=== PATIENT | male | born 1985 | race African-American/Black ===

== ENCOUNTER 2021-08-28 21:42 | Emergency (ER) | payer OTHER ==
--- NOTE | 2021-08-28 23:49 | XRAY Report ---
PROCEDURE: Chest 1 View X-Ray INDICATIONS: chest pain TECHNIQUE: One view of the chest was acquired. COMPARISON: None FINDINGS: Surgical changes and devices: None. Lungs and pleura: No pleural effusions or pneumothorax. Lungs are clear. Mediastinum: Mediastinal contours appear normal. Heart size is enlarged. Bones and chest wall: No suspicious bony lesions. Overlying soft tissues appear unremarkable. IMPRESSION: 1. Cardiomegaly. 2. No other acute cardiopulmonary abnormality. Reviewed by: Shade Glover on 08/28/2021 11:47 PM PDT Approved by: Shade Glover on 08/28/2021 11:47 PM PDT Station ID: [id number]
[2021-08-28 23:52] LABS: BASOPHILS # (AUTO) 0.1 10^3/uL (0.0-0.1); BASOPHILS % (AUTO) 0.9 %; EOSINOPHILS # (AUTO) 0.2 10^3/uL (0.0-0.7); EOSINOPHILS % (AUTO) 2.8 %; HCT - HEMATOCRIT 44.8 % (42.0-52.0); HGB - HEMOGLOBIN 14.4 g/dL (14.0-18.0); LYMPHOCYTES # (AUTO) 3.1 10^3/uL (1.5-3.5); MEAN CORPUSCULAR HEMOGLOBIN 26.3 pg (27.0-31.0); MEAN CORPUSCULAR HGB CONC 32.1 g/dL (32.0-36.0); MEAN CORPUSCULAR VOLUME 81.8 fL (80.0-94.0); MEAN PLATELET VOLUME 9.4 fL (7.4-11.4); MONOCYTES # (AUTO) 0.5 10^3/uL (0.0-1.0); MONOCYTES % (AUTO) 7.2 %; NEUTROPHILS # (AUTO) 2.7 10^3/uL (1.5-6.6); NEUTROPHILS % (AUTO) 41.8 %; PLT - PLATELET COUNT 222 10^3/uL (130-450); RED BLOOD COUNT 5.48 10^6/uL (4.70-6.10); RED CELL DISTRIBUTION WIDTH 15.1 % (12.0-15.0); WHITE BLOOD COUNT 6.5 x10^3/uL (4.8-10.8)
[2021-08-29 00:05] LABS: ALBUMIN 4.5 g/dL (3.2-5.5); ALBUMIN/GLOBULIN RATIO 1.4 (1.0-2.2); BILIRUBIN,TOTAL 0.2 mg/dL (0.2-1.0); CALCIUM 9.2 mg/dL (8.5-10.3); CREATININE 0.8 mg/dL (0.6-1.2); INR 1.1 (0.8-1.2); PT - PROTHROMBIN TIME 12.1 secs (9.9-12.6); TOTAL PROTEIN 7.8 g/dL (6.7-8.2)
[2021-08-29] MEDS ORDERED: IOVERSOL 320 100 ML VIAL IVP ONE ×2 (00:26→01:19)
--- NOTE | 2021-08-29 01:54 | CT Report ---
PROCEDURE: ANGIO CHEST W/WO INDICATIONS: chest pain, elev d-dimer CONTRAST: IV CONTRAST: Optiray 320 ml: 100 PO CONTRAST: *NO PO CONTRAST TECHNIQUE: After the administration of intravenous contrast, 2 mm axial images were acquired from the pulmonary apices to the posterior costophrenic angles during the arterial phase. In addition, 1 mm lung kernel and 5 mm soft tissue kernel reconstructions were performed. 3-dimensional coronal oblique maximum int ensity projection (MIP) reformats, 8 mm axial MIP, and 5 mm coronal and sagittal MPR reformats were t hen performed through the thorax. For radiation dose reduction, the following was used: automated exp osure control, adjustment of mA and/or kV according to patient size. COMPARISON: None FINDINGS: Image quality: Excellent. Pulmonary arteries: Pulmonary arteries are normal in size, and demonstrate no intraluminal filling d efects to suggest central pulmonary embolism. Lungs and pleura: Lungs are clear. No pleural effusions or pneumothorax. Central and peripheral ai rways are patent. There is bibasilar atelectasis. Mediastinum: Heart size is normal, without pericardial effusion. No mediastinal or hilar adenopathy . Thoracic aorta is normal in caliber and enhancement. Esophagus is normal in caliber, without hiat al hernia. Bones and chest wall: No suspicious bony lesions. Ribs and thoracic spine appear intact throughout. No axillary or supraclavicular adenopathy. The thyroid is normal in size and there are no incident al findings. Abdomen: Visualized upper abdominal solid organs appear normal in the early arterial phase of enhanc ement. IMPRESSION: 1. No acute abnormality of the chest. 2. No pulmonary embolism. 3. Bibasilar atelectasis. Reviewed by: Shade Glover on 08/29/2021 1:53 AM PDT Approved by: Shade Glover on 08/29/2021 1:53 AM PDT Station ID: [id number]
--- NOTE | 2021-08-29 02:04 | ED Physician Documentation ---
PD HPI CHEST PAIN - Stated complaint Stated Complaint: CHEST PAIN/TIGHTNESS/SOA - Chief complaint Chief Complaint: Cardiac - History obtained from History obtained from: Patient - Additional information Additional information: Patient comes emergency department chief complaint of left-sided chest pain that began suddenly 2 nights ago. He states he was just sitting on the couch when he suddenly began to feel the pain. He thought it would go away on its own, but it did not. He states it hurts to take a deep breath or if he breathes more rapidly. It also hurts when he turns certain ways or lays on it. He denies any swelling or pain in his lower extremities. 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 He states he throws a couple passes now and then, but does not feel that he injured anything in this effort. Patient states that he has had chest wall pains before when he was worked out hard but that he was not lifting anything heavy this time. No other complaints at this time. Patient denies any personal or family history of DVT. He has grandparents who have had strokes and MIs in their elderly years but nobody at a young age. Patient denies nausea or vomiting. No facial sweating or lightheadedness. He is not a smoker. No other complaints at this time. Review of Systems Ten Systems: 10 systems reviewed and negative Constitutional: reports: Reviewed and negative Eyes: reports: Reviewed and negative Ears: reports: Reviewed and negative Nose: reports: Reviewed and negative Throat: reports: Reviewed and negative Cardiac: reports: Chest pain / pressure Respiratory: reports: Reviewed and negative GI: reports: Reviewed and negative : reports: Reviewed and negative Skin: reports: Reviewed and negative Musculoskeletal: reports: Reviewed and negative Neurologic: reports: Reviewed and negative Psychiatric: reports: Reviewed and negative Endocrine: reports: Reviewed and negative Immunocompromised: reports: Reviewed and negative PD PAST MEDICAL HISTORY - Past Medical History Past Medical History: No - Past Surgical History Past Surgical History: No - Present Medications Home Medications: Ambulatory Orders Medication Instructions Recorded Confirmed No Known Home Medications 08/28/21 08/28/21 - Allergies Allergies/Adverse Reactions: Allergies Allergy/AdvReac Type Severity Reaction Status Date / Time No Known Drug Allergies Allergy Verified 08/28/21 21:53 - Social History Does the pt smoke?: No Smoking Status: Never smoker Does the pt drink ETOH?: No Does the pt have substance abuse?: No - Immunizations Immunizations are current?: Yes PD ED PE NORMAL - Vitals Vital signs reviewed: Yes - General General: Alert and oriented X 3, No acute distress, Well developed/nourished - HEENT HEENT: Atraumatic, PERRL, EOMI, Moist mucous membranes - Neck Neck: Supple, no meningeal sign - Cardiac Cardiac: RRR, No murmur, Strong equal pulses - Respiratory Respiratory: No respiratory distress, Clear bilaterally - Abdomen Abdomen: Soft, Non tender, Non distended - Derm Derm: Normal color, Warm and dry, No rash - Extremities Extremities: No deformity, No edema - Neuro Neuro: Alert and oriented X 3, rn telehealth 2-12 intact, Normal speech - Psych Psych: Normal mood, Normal affect Results - Vitals Vitals: Vital Signs - 24 hr 08/28/21 08/28/21 08/29/21 21:45 23:50 00:38 Temperature 36.4 C L 36.7 C Heart Rate 90 72 78 Respiratory 16 23 23 Rate Blood Pressure 141/91 H 139/101 H 146/95 H O2 Saturation 96 96 96 08/29/21 02:00 Temperature Heart Rate 77 Respiratory 16 Rate Blood Pressure 116/87 H O2 Saturation 98 Oxygen O2 Source Room air - EKG (time done) 2149 Rate: Rate (enter#) (81) Rhythm: NSR [place]: Normal Intervals: Normal ID QRS: Normal Ischemia: Normal ST segments. No: T wave inversion Compare to prior EKG: Old EKG unavailable Computer interpretation: Agree with computer - Labs Labs: Laboratory Tests 08/28/21 08/28/21 08/28/21 22:37 23:40 23:40 WBC 6.5 RBC 5.48 Hgb 14.4 Hct 44.8 MCV 81.8 MCH 26.3 L MCHC 32.1 RDW 15.1 H Plt Count 222 MPV 9.4 Neut # (Auto) 2.7 Lymph # (Auto) 3.1 [place] # (Auto) 0.5 Eos # (Auto) 0.2 Baso # (Auto) 0.1 Absolute Nucleated RBC 0.00 Nucleated RBC % 0.0 PT 12.1 INR 1.1 D-Dimer 368.7 H Sodium Potassium Chloride Carbon Dioxide Anion Gap BUN Creatinine Estimated GFR (MDRD) Glucose Calcium Total Bilirubin AST ALT Alkaline Phosphatase Total Protein Albumin Globulin Albumin/Globulin Ratio Lipase 08/28/21 23:40 WBC RBC Hgb Hct MCV MCH MCHC RDW Plt Count MPV Neut # (Auto) Lymph # (Auto) [place] # (Auto) Eos # (Auto) Baso # (Auto) Absolute Nucleated RBC Nucleated RBC % PT INR D-Dimer Sodium 136 Potassium 4.0 Chloride 100 L Carbon Dioxide 27 Anion Gap 9.0 BUN 17 Creatinine 0.8 Estimated GFR (MDRD) 133 Glucose 99 Calcium 9.2 Total Bilirubin 0.2 AST 21 ALT 21 Alkaline Phosphatase 60 Total Protein 7.8 Albumin 4.5 Globulin 3.3 Albumin/Globulin Ratio 1.4 Lipase 28 - Rads (name of study) CXR Radiology: Final report received, EMP read indepedently, See rad report (neg) CTA chest Radiology: Final report received, EMP read indepedently, See rad report PD MEDICAL DECISION MAKING - ED course Complexity details: reviewed results, re-evaluated patient, considered differential, d/w patient ED course: The patient overall was well-appearing and I suspected that most likely, the patient had a chest wall source of his pain. However, the sudden onset of the pain raise concern for possible PE, as well as the persistence of the pain for 2 days. As such, along with EKG and chest x-ray, which were unremarkable, I ordered a D-dimer. This was elevated over 300. At this point in time, remainder of labs were obtained, including CBC, CMP, and INR. These were unremarkable, and patient was sent for a CTA of the chest. This was also unremarkable. I discussed with the patient that there is no evidence of an emergent condition at this time. We have discussed the use of ibuprofen and Tylenol if needed for discomfort. We have discussed the usual indications for return. Departure - Departure Disposition: 01 Home, Self Care Clinical Impression: Chest wall pain Condition: Stable Instructions: ED Chest Pain Costochondritis, ED Strain Chest Wall Comments: Fortunately, your CT scan of the chest was negative. Your labs look good, except for the lab we discussed, the D-dimer. This was elevated and that can sometimes suggest a clot in the blood vessels. Because of this, we were concerned that you may have a blood clot that had gone to your lung circulation. However, this proved not to be the case. Likely, you have some muscular tightness in your chest wall and this will get better with time. You may use ibuprofen and Tylenol as needed to help with this as well as ice and heat. Stretching also helps. Please follow-up with your primary care physician, as needed.
[2021-08-29 02:15] VITALS: BP 116/87
== END 2021-08-29 02:22 | disposition home or self-care (01) ==
LOC: ED 21:42
DX: R07.89 Other chest pain (principal)
CPT/HCPCS: 36415; 71045; 71275; 80053; 83690; 85025; 85379; 85610; 93005; 99283; 99284; Q9967

== ENCOUNTER 2022-07-19 20:32 | Emergency (ER) | payer OTHER ==
[2022-07-19] MEDS ORDERED: AMOX/CLAV 875 MG/125 MG TABLET PO STA (21:15)
[2022-07-19] MEDS ORDERED: SULFAMETH/TRIMETH DS 800/160 MG TABLET PO STA (21:28)
--- NOTE | 2022-07-19 21:35 | ED Physician Documentation ---
PD HPI OPHTHO - Stated complaint Stated Complaint: SWOLLEN EYE - Chief complaint Chief Complaint: Wound - History obtained from History obtained from: Patient - Additional information Additional information: Patient is a 36-year-old male with no significant past medical history presenting for evaluation of left lower eyelid swelling that has been present for 2 to 3 days. 2 to 3 days ago he noticed a few small sets of what he thought were insect bites. The area scabbed but the scabs came off this morning and he has noted some yellow drainage from the wound as well as some redness and swelling. He denies visual disturbances. Denies pain with eye movements.He does not wear contacts or use glasses. Review of Systems Constitutional: denies: Fever Eyes: denies: Decreased vision Nose: denies: Congestion Throat: denies: Sore throat Cardiac: denies: Chest pain / pressure Respiratory: denies: Dyspnea GI: denies: Abdominal Pain Skin: reports: Lesions Neurologic: denies: Headache PD PAST MEDICAL HISTORY - Past Medical History Past Medical History: No - Past Surgical History Past Surgical History: No - Present Medications Home Medications: Ambulatory Orders Medication Instructions Recorded Confirmed Amox/Clav 875/125 [Augmentin] 1 each PO Q12H #14 tablet 07/19/22 Sulfamethox/Trimeth 800/160 1 each PO BID #14 tablet 07/19/22 [Bactrim Ds 800/160] - Allergies Allergies/Adverse Reactions: Allergies Allergy/AdvReac Type Severity Reaction Status Date / Time No Known Drug Allergies Allergy Verified 07/19/22 20:44 - Social History Does the pt smoke?: No Smoking Status: Never smoker Does the pt drink ETOH?: No Does the pt have substance abuse?: No - Immunizations Immunizations are current?: Yes PD ED PE NORMAL - General General: Alert and oriented X 3, No acute distress, Well developed/nourished - HEENT HEENT: Atraumatic, PERRL, EOMI, Moist mucous membranes, Pharynx benign - Neck Neck: Supple, no meningeal sign - Respiratory Respiratory: No respiratory distress - Derm Derm: Other (Mild redness and swelling to left lower eyelid with no fluctuance) - Neuro Neuro: Normal speech PD ED PE EXPANDED - HEENT HEENT Visual: 1 - deformity (few small shallow open wounds with serous drainage) 2 - swelling (and erythema) - Eyes Eyes: Visual acuity - see nn, PERRL, EOMI, Eyelid erythema (Left lower), Nl conjunctiva/sclera Results - Vitals Vitals: Vital Signs - 24 hr 07/19/22 07/19/22 20:44 21:36 Temperature 36.6 C 36.6 C Heart Rate 70 72 Respiratory 18 17 Rate Blood Pressure 143/96 H 144/89 H O2 Saturation 99 98 Oxygen O2 Source Room air PD MEDICAL DECISION MAKING - ED course ED course: Patient evaluated for redness and swelling to left lower eyelid. Visual acuity intact and EOMI without pain. Do not suspect orbital cellulitis at this time based on his exam. Appears to have a preseptal cellulitis Which likely started from an insect bite or sting.Will cover with Augmentin and Bactrim. Patient is very well-appearing, nontoxic with stable vitals. Patient counseled on concerning symptoms to return for. Departure - Departure Disposition: 01 Home, Self Care Clinical Impression: Preseptal cellulitis of left lower eyelid Condition: Stable Instructions: ED Cellulitis Joanne Orbital Prescriptions: Amox/Clav 875/125 [Augmentin] 1 each PO Q12H #14 tablet Sulfamethox/Trimeth 800/160 [Bactrim Ds 800/160] 1 each PO BID #14 tablet Comments: You have an infection to the left lower eyelid which likely started from an insect bite or sting. I have started you on 2 antibiotics which should help with the infection. Please make sure to complete both courses of antibiotics. I have sent the prescriptions to [facility] in [place]. If you have any worsening symptoms such as changes in vision, worsening redness, swelling or pain please return to the ER. Discharge Date/Time: 07/19/22 21:39
[2022-07-19 21:37] VITALS: BP 144/89
== END 2022-07-19 21:39 | disposition home or self-care (01) ==
LOC: ED 20:32
DX: H00.035 Abscess of left lower eyelid (principal)
CPT/HCPCS: 99282; A9270